=== PATIENT | female | born 1990 | race Caucasian/White ===

== ENCOUNTER → 2021-12-29 13:09 | Outpatient (BNVA) | payer OTHER, SELFPAY | PROVIDERS: PCP Nurse Practitioner Family; Visit Provider Nurse Practitioner Family | DX: R05.9 Cough, unspecified (principal); R06.02 Shortness of breath; R00.2 Palpitations; Z76.89 Persons encountering health services in other specified circumstances; Z86.39 Personal history of other endocrine, nutritional and metabolic disease | CPT/HCPCS: 80053; 80061; 84443 ==